=== PATIENT | female | born 1990 | race Hispanic/Latino ===

== ENCOUNTER 2024-11-15 19:02 | Emergency (ER) | payer MEDICAID ==
[~2024-11-15] VITALS: Ht 154.9 cm; Wt 61.2 kg
--- NOTE | 2024-11-15 19:24 | ERN ---
ED Note History of Present Illness Stated Complaint: HEADACHE, N/V Chief Complaint: Headache Time Seen by MD: 19:05 Time Seen by Midlevel: 19:05 Dictation: The patient is a 34-year-old female with a history of appendectomy, hernia repair who presents to the emergency department with complaints of frontal headache, nausea and nonbloody vomiting onset 1 hour ago. Patient denies any head trauma, fevers, abdominal pain, use of medications. Reports bilateral arm tingling Allergies: Coded Allergies: No Known Drug Allergies (Verified Allergy, 02/20/12) Home Meds Active Scripts Aspirin/Acetaminophen/Caffeine (Excedrin Extra Strength Caplet) 250 Mg-250 Mg-65 Mg Tablet, 2 EACH PO DAILY PRN for headache, #30 TAB Prov:JUAN PABLO GUSMAN EXECUTIVE DIRECTOR 11/15/24 Past Medical History Past Medical History: No Pertinent History Surgical History: Appendectomy, Other, BTL Surgical History Other: HERNIA RN Note Reviewed/Agreed w/PFSH: Yes Review of System Dictation Constitutional: Negative for fever,chills, and weight loss Eyes: Negative for injury, pain,redness, and discharge ENT: Negative for injury,pain or swelling Cardiovascular: Negative for chest pain, palpitations, and edema Respiratory: Negative for shortness of breath, cough, and wheezing, Abdomen/GI: Negative for abdominal pain, diarrhea, and constipation positive for nausea, vomiting Back: Negative for injury and pain : Negative for injury, bleeding and discharge MS/Extremity: Negative for injury and deformity Skin: Negative for rash, and discoloration Neuro: Negative for weakness, numbness,, and seizure positive for headache, bilateral arm tingling Psych: Negative for suicide ideation, homicidal ideation, and hallucinations Initial Vital Sign VS Vital Signs Date Time Temp Pulse Resp B/P (MAP) Pulse Ox O2 Delivery O2 Flow Rate FiO2 11/15/24 19:04 97.9 75 20 108/89 100 Room Air Physical Exam Dictation Vital Signs reviewed General Appearance: Alert, oriented x 3, no acute distress, well developed, nourished. Head and Face: non-traumatic. Eyes: PERRL, pink conjunctivas, eyelid no trauma, anterior chamber with arcus senilis. Ears: Pinnas intact and no signs of trauma or erythema ear canals clear and no discharge TM no erythema Nose: No discharge, no bleeding. Oropharynx: Mouth normal, tongue pink. pharynx clear,no erythema, tonsils no exudates, no abscesses noted, mucous membrane moist Neck: Supple, non-tender, no thyromegaly, no masses, no JVD, no bruits Breast:Deferred Chest:No tenderness, no crepitus, no paradoxical movement, no retractions Lungs:Clear, well-ventilated, symmetric, no rales, no wheezing, no rhonchi, no stridor, good breath sounds bilaterally Heart: Regular rate, regular rhythm, no murmur, no gallops Vascular: no peripheral edema, Abdomen: Soft, positive bowel sounds, nondistended, no guarding, nontender, no rebound, no masses no hepatomegaly, no splenomegaly, no Cruz's sign, no hernias. Rectal: Deferred Genital: Deferred Neurological: Normal speech, motor function intact, sensory function intact , upper extremities equal in strength, lower extremities equal in strength. Musculoskeletal: Neck nontender, full range of motion, back nontender, full range of motion, Extremities: nontender, full range of motion Skin: Color pink, dry, no turgor, no rash, no lacerations, no abrasions, no contusions. Lymphatic: Deferred Results (Laboratory/Radiology) Laboratory/Radiology Laboratory Tests Test 11/15/24 19:20 White Blood Count 8.4 K/uL (4.8-10.8) Red Blood Count 4.65 MIL/uL (4.00-5.50) Hemoglobin 14.4 g/dL (12.0-16.0) Hematocrit 42.0 % (36-48) Mean Corpuscular Volume 90.3 fL (79-99) Mean Corpuscular Hemoglobin 31.0 pg (27.0-33.0) Mean Corpuscular Hemoglobin Concent 34.3 g/dL (32.0-36.0) Red Cell Distribution Width 12.3 % (11.0-15.5) Platelet Count 210 K/uL (130-400) Mean Platelet Volume 10.8 fL (7.5-10.5) H Immature Granulocyte % (Auto) 0.2 % (0-1) Neutrophils (%) (Auto) 65.8 % (40.0-77.0) Lymphocytes (%) (Auto) 25.9 % (21.0-51.0) Monocytes (%) (Auto) 5.7 % (3.0-13.0) Eosinophils (%) (Auto) 1.7 % (0.0-8.0) Basophils (%) (Auto) 0.7 % (0.0-5.0) Neutrophils # (Auto) 5.5 K/uL (1.8-7.7) Lymphocytes # (Auto) 2.2 K/uL (1.0-4.8) Monocytes # (Auto) 0.5 K/uL (0.1-1.0) Eosinophils # (Auto) 0.14 K/uL (0.00-0.70) Basophils # (Auto) 0.06 K/uL (0.00-0.20) Absolute Immature Granulocyte (auto 0.02 K/uL (0-1) Nucleated Red Blood Cells 0.0 % (0.0-0.19) Sodium Level 139 mmol/L (136-145) Potassium Level 3.5 mmol/L (3.5-5.1) Chloride Level 103 mmol/L (101-111) Carbon Dioxide Level 27 mmol/L (21-32) Blood Urea Nitrogen 17 mg/dL (7-18) Creatinine 0.9 mg/dL (0.5-1.0) Glomerular Filtration Rate Calc 87 mL/min (>90) Random Glucose 108 mg/dL (70-105) H Total Calcium 9.0 mg/dL (8.5-10.1) Serum Test, Qualitative NEGATIVE (NEGATIVE) REASON: headache, nv ORDERING PHYSICIAN: JUAN PABLO GUSMAN PROCEDURE: HEAD WO - CT HEAD/BRAIN W/O CONTRAST CT HEAD/BRAIN W/O CONTRAST HISTORY: Headaches COMPARISON: None TECHNIQUE: Multiple sequential axial images of the head were obtained from the base of the skull through vertex. Patient was not given contrast through intravenous route. FINDINGS: The ventricles and extraventricular CSF spaces are nondilated for patient's age. There is no midline shift, mass effect or herniation. No acute intracranial bleed is seen. Visualized portion of the paranasal sinuses are grossly within normal limits. IMPRESSION: 1. No acute intracranial bleed is seen. CT was performed with one or more following dose reduction techniques: automated exposure control, adjustment of the mA and kv according to patient's size, or use of a iterative reconstruction technique. Labs Reviewed?: Yes ED Course ED Course Orders Procedure Category Date Status Time Cbc With Differential LAB 11/15/24 Complete 19:09 0.9%Nacl 1000ml (Ns PHA 11/15/24 In Process 1000ml) 19:30 Basic Metabolic Panel LAB 11/15/24 Complete 19:09 Testing, LAB 11/15/24 Complete Serum Hcg 19:09 Acetaminophen 500mg PHA 11/15/24 In Process Tab (Tylenol 500mg T 19:30 Diphenhydramine Hcl PHA 11/15/24 In Process (Benadryl Inj) 19:30 Metoclopramide 10 PHA 11/15/24 In Process Mg/2 Ml Vial (Reglan 1 19:30 Ct Head/Brain W/O CT 11/15/24 Resulted Contrast 19:09 Current Medications Medications (Trade) Dose Ordered Sig/Meliza Route PRN Reason Start Time Stop Time Status Last Admin Dose Admin Acetaminophen (TYLenol 500MG TAB) 1,000 mg ONCE PO 11/15/24 19:30 11/15/24 23:59 11/15/24 19:32 Diphenhydramine HCl (BENAdryl INJ) 25 mg ONCE IV 11/15/24 19:30 11/15/24 23:59 11/15/24 19:33 Metoclopramide HCl (regLAN 10MG IV) 10 mg ONCE IVP 11/15/24 19:30 11/15/24 23:59 11/15/24 19:32 Sodium Chloride 1,000 ml @ 0 mls/hr ONCE IV 11/15/24 19:30 11/16/24 19:29 11/15/24 19:29 Vital Signs Date Time Temp Pulse Resp B/P (MAP) Pulse Ox O2 Delivery O2 Flow Rate FiO2 11/15/24 19:04 97.9 75 20 108/89 100 Room Air Medical Decision Making MDM The patient is a 34-year-old female with a history of appendectomy, hernia repair who presents to the emergency department with complaints of frontal headache, nausea and nonbloody vomiting onset 1 hour ago. Patient denies any head trauma, fevers, abdominal pain, use of medications. Reports bilateral arm tingling CBC showed no leukocytosis, no anemia, chemistry showed no electrolyte imbalance, normal renal function, negative . ct head showed no acute pathology. Patient reports improving in pain, continues neurologically intact, stable vital sings. Patient nontoxic appearance, will be discharge to follow up with pcp. Differential diagnosis: Tension headache, migraine headache, dehydration, intracerebral hemorrhage Need for hospitalization: Patient does not meet criteria for hospitalization. There are no social concerns with this patient. DX & DISP Disposition: Discharge Departure Impression: Primary Impression: Tension headache Condition: Stable Scripts Aspirin/Acetaminophen/Caffeine (Excedrin Extra Strength Caplet) 250 Mg-250 Mg-65 Mg Tablet 2 EACH PO DAILY PRN for headache, #30 TAB Prov: JUAN PABLO GUSMAN 11/15/24 Additional Instructions: Please follow up with your primary doctor in 1-2 days. Take medications as prescribed. If symptoms worsen please return to ER. FOLLOW-UP WITH PRIMARY CARE PROVIDER IN 1 TO 2 DAYS. TAKE MEDICATIONS DIRECTED HERE IN THE EMERGENCY ROOM. OKAY TO CONTINUE HOME MEDICATIONS UNLESS OTHERWISE DISCUSSED DURING YOUR VISIT IN THE EMERGENCY ROOM TODAY. RETURN TO YOUR NEAREST EMERGENCY ROOM IF SYMPTOMS WORSEN OR IF THERE IS NO IMPROVEMENT. CALL 911 IF YOU NEED IMMEDIATE ASSISTANCE. TAKE TYLENOL OR MOTRIN [id number] NEEDED AND IF NO CONTRAINDICATIONS ARE PRESENT. INCREASE ORAL HYDRATION. A WOUND CULTURE OR URINE CULTURE WAS ORDERED HERE IN THE EMERGENCY ROOM DEPARTMENT PLEASE FOLLOW-UP WITH PRIMARY CARE PROVIDER AND ADVISE THEM TO GET REPEAT PORTS FROM OUR FACILITY. IF YOU HAD ANY LIA WRAP/SPLINTS THAT WERE APPLIED HERE, PLEASE DO NOT REMOVE THEM UNTIL YOU SEE YOUR PRIMARY CARE OR SPECIALTY. Referrals: RAY CALIXTO CNM (PCP) Time of Disposition: 20:41 I have reviewed the case, and I agree with, Diagnosis and Plan JUAN PABLO GUSMAN November 15, 2024 19:24
[2024-11-15 19:25] LABS: BASOPHILS # (AUTO) 0.06 K/uL (0.00-0.20); BASOPHILS % (AUTO) 0.7 % (0.0-5.0); EOSINOPHILS # (AUTO) 0.14 K/uL (0.00-0.70); EOSINOPHILS % (AUTO) 1.7 % (0.0-8.0); IMMATURE GRANULOCYTE ABSOLUTE 0.02 K/uL (0-1); LYMPHOCYTES # (AUTO) 2.2 K/uL (1.0-4.8); LYMPHOCYTES % (AUTO) 25.9 % (21.0-51.0); MEAN CORPUSCULAR HGB CONC 34.3 g/dL (32.0-36.0); MEAN CORPUSCULAR VOLUME 90.3 fL (79-99); MONOCYTES # (AUTO) 0.5 K/uL (0.1-1.0); MONOCYTES % (AUTO) 5.7 % (3.0-13.0); NEUTROPHILS # (AUTO) 5.5 K/uL (1.8-7.7); NEUTROPHILS % (AUTO) 65.8 % (40.0-77.0); PLATELET COUNT (AUTO) 210 K/uL (130-400); RED BLOOD CELL COUNT(AUTO) 4.65 MIL/uL (4.00-5.50); RED CELL DISTRIBUTION WIDTH 12.3 % (11.0-15.5); WHITE BLOOD COUNT (AUTO) 8.4 K/uL (4.8-10.8)
[2024-11-15] MEDS: 0.9%NACL 1000ML 1,000 ML IV SCH (19:29)
[2024-11-15] MEDS: acetaMINOPHEN 500 MG TABLET PO SCH (19:32)
[2024-11-15] MEDS: metoCLOPRAmide 10 MG/2 ML VIAL IVP SCH (19:32)
[2024-11-15] MEDS: DiphenhydrAMINE HCL 50 MG/ML VIAL IV SCH (19:33)
[2024-11-15 19:36] LABS: CREATININE 0.9 mg/dL (0.5-1.0); POTASSIUM 3.5 mmol/L (3.5-5.1)
--- NOTE | 2024-11-15 19:47 | NUR ---
PATIENT STATES TOOK 500MG TYLENOL WET PRIMER POWDER BLENDER.
--- NOTE | 2024-11-15 20:21 | HMCIMG ---
CT HEAD/BRAIN W/O CONTRAST HISTORY: Headaches COMPARISON: None TECHNIQUE: Multiple sequential axial images of the head were obtained from the base of the skull through vertex. Patient was not given contrast through intravenous route. FINDINGS: The ventricles and extraventricular CSF spaces are nondilated for patient's age. There is no midline shift, mass effect or herniation. No acute intracranial bleed is seen. Visualized portion of the paranasal sinuses are grossly within normal limits. IMPRESSION: 1. No acute intracranial bleed is seen. CT was performed with one or more following dose reduction techniques: automated exposure control, adjustment of the mA and kv according to patient's size, or use of a iterative reconstruction technique.
[2024-11-15] MEDS ORDERED: ASPI-1190 PO (20:46)
[2024-11-15 20:50] VITALS: PULSE 65; TEMP 98.2
[2024-11-15 21:13] VITALS: BP 106/74; RESP 18; O2SAT 98
== END 2024-11-15 21:13 | disposition home or self-care (01) ==
LOC: EDH 19:02
DX: G44.209 Tension-type headache, unspecified, not intractable (principal); Z90.49 Acquired absence of other specified parts of digestive tract; Z98.51 Tubal ligation status; Z98.890 Other specified postprocedural states
CPT/HCPCS: 99285; 96374; 70450; 96361; 96375; 80048; 84703; 85025; 36415; J1200; J7030; J2765